=== PATIENT | female | born 1985 | race Two or more races ===

== ENCOUNTER → 2016-10-12 | Day surgery (SDC) | payer SELFPAY ==
[~2016-10-12] VITALS: Ht 162.6 cm; Wt 86.4 kg
[~2016-10-12] MED LIST: ASPIRIN325 MG PO; BACTRIM DS1 TAB PO; DRISDOL 5050000 UNIT PO; PERCOCET 5-3251 EACH PO; TYLENOL EXTRA500 MG PO; VITAMIN D2000 UNIT PO
--- NOTE | ~2016-10-12 | OR ---
PATIENT'S NAME: ZELDA JAQUEZ [facility] AGE: 31 Y [address] ROOM: [place] [address] LOCATION: [facility] [place] [facility] [place] ADMIT DATE: 10/12/2016 OR/Procedure Report DISCHARGE DATE: FAMILY PHYSICIAN: PHYSICIAN, NO ATTENDING PHYSICIAN: ELICEO SON SURGEON: Eliceo Son MD CONTENT STRATEGY LEAD: Davon Hillman PA-C DATE OF PROCEDURE: 10/12/2016 PREOPERATIVE DIAGNOSES: 1. Symptomatic retained hardware from right ankle with loosening of orthopedic hardware. 2. Peroneal tendinitis secondary to symptomatic hardware in ankle. POSTOPERATIVE DIAGNOSES: 1. Symptomatic retained hardware from right ankle with loosening of orthopedic hardware. 2. Peroneal tendinitis secondary to symptomatic hardware in ankle. PROCEDURES PERFORMED: 1. Removal of deep buried hardware from distal fibula and medial malleolus. 2. Debridement of peroneal tendons. 3. Use of intraoperative fluoroscopy, less than one hour. ANESTHESIA: General endotracheal anesthesia. FLUIDS: See anesthesia report. ESTIMATED BLOOD LOSS: Minimal. TOURNIQUET: Right proximal thigh, 250 mmHg. SPECIMENS: Removed symptomatic hardware from right ankle and wound cultures. COMPLICATIONS: None. DISPOSITION: Stable, in PACU. COUNTS: All counts were correct. INDICATIONS: Ms. Jaquez is a 31-year-old Pashto-speaking female, noncompliant through her postoperative course, with symptomatic hardware and peroneal tendinitis. The risks, benefits, and alternatives to pursuing surgical intervention were discussed with the patient in detail. She elected to proceed with surgery today. Anesthesia was consulted for their perioperative PATIENT'S NAME: ZELDA JAQUEZ [facility] AGE: 31 Y [address] ROOM: [place] [address] LOCATION: [facility] [place] [facility] [place] ADMIT DATE: 10/12/2016 OR/Procedure Report DISCHARGE DATE: FAMILY PHYSICIAN: PHYSICIAN, NO ATTENDING PHYSICIAN: ELICEO SON evaluation of the patient. DESCRIPTION OF PROCEDURE: The patient was brought from the holding area to the operating room. A time-out was performed. General endotracheal anesthesia was administered. I turned my attention to the to the ankle and foot. An Esmarch was used to exsanguinate the limb, and the tourniquet was inflated to 250 mmHg. Perioperative antibiotics were administered for perioperative prophylaxis. I turned my attention to the lateral aspect of the ankle. Using the previous surgical incision, I used a 15 blade knife to make an incision through skin, subcutaneous tissue, scar tissue down to the plate and screw construct. I subsequently removed the plate and screw construct and the interfragmentary screw at the distal fibula. This hardware was sent for specimen and culture. Wound culture was also obtained. I turned my attention to the peroneal tendons posteriorly, and I subsequently debrided them using a 15 blade knife, dissecting scissors, and curette. I did not find any focal collection of deep abscess or fluid collection suspicious for deep infection. Three liters of normal sterile saline solution were used to irrigate the wound laterally. A series of rongeurs and curettes were used to clean the bone after the plate and screws had been removed. The wound was then closed in layers. I turned my attention to the medial aspect of the distal tibia. I turned my attention to the medial malleolus and introduced intraoperative fluoroscopy. I cannulated 2 of the screws there that were partially threaded and cannulated. I subsequently removed them. I debrided the bony site. The wound was then copiously irrigated and closed in layers. Final fluoroscopic image of the right ankle revealed successful removal of the hardware from the right ankle. The ankle mortise was in anatomic alignment. No evidence of fracture or dislocation. A sterile dressing was placed in the form of Xeroform followed by 4x4, Webril, and Heriberto bandage. The tourniquet was let down. The toes reperfused. The patient was then transferred from the operating room table onto the stretcher and extubated. She was brought to the recovery room in stable condition. There were no intraoperative complications noted. Of note, my PA, Davon Hillman PA-C, played an integral role in the intraoperative care of this patient. This included preoperative positioning, intraoperative expert retraction, and closing and dressing functions. PATIENT'S NAME: ZELDA JAQUEZ [facility] AGE: 31 Y [address] ROOM: [place], [place] [address] LOCATION: [facility] [place] [facility] [place] ADMIT DATE: 10/12/2016 OR/Procedure Report DISCHARGE DATE: FAMILY PHYSICIAN: PHYSICIAN, NO ATTENDING PHYSICIAN: ELICEO SON IMPRESSION: The patient is status post the noted procedure above. PLAN: The patient will be weightbearing as tolerated on the right lower extremity. She will be otherwise encouraged to rest, ice, and elevate the ankle going forward. She will follow up in my office in 1 week for a wound check, seeing that this patient had a previous wound problem in the past and issues with compliance. Postoperative pain medicine will be prescribed. I will continue to follow the patient closely in the postoperative period. MD DAVID RAYMOND/donis /[id number] d: 10/12/16 1500 t: 10/13/16 0843, OPERATIVE SUMMARY
[2016-10-12 08:48] LABS: BASOPHIL % 0.5 %; EOSINOPHIL # 0.2 K/uL (0.0-0.5); EOSINOPHIL % 2.7 %; HEMATOCRIT 37.6 % (33.0-46.0); IMMATURE GRANULOCYTE % 0.4 %; LYMPHOCYTE # 2.8 K/uL (0.8-4.0); LYMPHOCYTE % 33.6 %; MCH 30.4 pg (27.0-34.0); MCHC 34.6 gm/dL (32.0-36.5); MCV 88.1 fl (83.0-98.0); MONOCYTE # 0.8 K/uL (0.0-1.0); MONOCYTE % 9.2 %; NEUTROPHIL # (ANC) 4.5 K/uL (1.8-7.8); NEUTROPHIL % 53.6 %; NRBC % 0 /100WBC (0-0.00); PLATELET COUNT 261 K/uL (150-450); RBC 4.27 M/uL (3.50-5.50); RDW-CV 13.2 % (11.9-14.6); WBC 8.4 K/uL (4.0-11.0)
--- NOTE | 2016-10-12 14:36 | NUR ---
D. PATIENT DISCHARGED TO HOME AT 1405. PATIENT STATED TO NURSE THAT RIDE WAS HERE AND NEEDED TO GO OUTSIDE. WHEN OUTSIDE, PATIENT STATED THAT FRIEND WAS COMING AND REFUSED TO COME BACK INTO HOSPITAL. A. PATIENT LEFT OUTSIDE ON BENCH WITH FRIEND THAT WAS WAITING FOR [employer]. NOTED WHEN TOOK SECOND PATIENT OUT AT 2:25 THAT PATIENT STILL ON BENCH. ASKED PATIENT TO COME BACK IN. PATIENT REFUSED. RIDE DID SHOW UP AT 2:30 AND PATIENT INTO CAR WITH FRIENDS AT THAT TIME
== END | disposition disaster alternative care site (69) ==
LOC: GPOC 10-07 14:00 → GSDC 08:05
PROVIDERS: Orthopaedic Surgery Adult Reconstructive Orthopaedic Surgery
PROC: 0QPJ04Z Removal of Internal Fixation Device from Right Fibula, Open Approach (ICD-10-PCS; principal; 2016-10-12)
PROC: 0QBJ0ZZ Excision of Right Fibula, Open Approach (ICD-10-PCS; principal; 2016-10-12)
DX: T84.196A Other mechanical complication of internal fixation device of bone of right lower leg, initial encounter (principal); M76.71 Peroneal tendinitis, right leg; Z98.890 Other specified postprocedural states; Y83.8 Other surgical procedures as the cause of abnormal reaction of the patient, or of later complication, without mention of misadventure at the time of the procedure
CPT/HCPCS: J0690; J1885; J2001; J3010; J7120